=== PATIENT | male | born 2000 | race Two or more races ===

== ENCOUNTER 2024-09-14 18:54 | Emergency (ER) | payer OTHER ==
[~2024-09-14] VITALS: Ht 177.8 cm; Wt 92.6 kg
[2024-09-14] MEDS ORDERED: VENTAER INH (20:48)
[2024-09-14 20:51] VITALS: BP 147/80; TEMP 98.6; O2SAT 98
== END 2024-09-14 20:59 | disposition home or self-care (01) ==
LOC: M ED 18:54
DX: J45.909 Unspecified asthma, uncomplicated (principal); Z79.51 Long term (current) use of inhaled steroids